=== PATIENT | male | born 1970 | race Caucasian/White ===

== ENCOUNTER 2017-08-20 17:21 | Inpatient (IN) | payer SELFPAY ==
[~2017-08-20] VITALS: Ht 167.6 cm; Wt 75.9 kg
[2017-08-20 19:42] VITALS: BP 118/77
[2017-08-20] MEDS ORDERED: LORazepam 2 MG TABLET PO PRN (20:00)
[2017-08-20] MEDS ORDERED: INFLUENZA VIRUS VACCINE QVS 2017-18 (3YR+)/PF 60 MCG/0.5 ML SYRINGE IM ONE (20:30)
[2017-08-20] MEDS: GABAPENTIN 400 MG CAPSULE PO SCH (21:55)
[2017-08-21] VITALS (8 sets, daily range): BP systolic 112–137; BP diastolic 67–92
[2017-08-21] MEDS: ZIPRASIDONE HCL 40 MG CAPSULE PO SCH (06:33)
[2017-08-21 08:10] LABS: EOSINOPHILS % (AUTO) 2.4 % (1.0-6.0); HEMATOCRIT 43.2 % (41-53); LYMPHOCYTES # (AUTO) 1.5 K/uL (1.0-4.8); MEAN CORPUSCULAR HEMOGLOBIN 29.8 pg (26.0-34.0); MEAN CORPUSCULAR HGB CONC 34.8 G/dL (31.0-37.0); MEAN CORPUSCULAR VOLUME 86 fL (80-100); MONOCYTES # (AUTO) 0.4 K/uL (0.1-1.0); MONOCYTES % (AUTO) 8.3 % (2.0-9.0); NEUTROPHILS # (AUTO) 2.7 K/uL (1.8-7.7); NEUTROPHILS % (AUTO) 56.3 % (40.0-70.0); PLATELET COUNT (AUTO) 178 K/uL (150-450); RED BLOOD CELL COUNT(AUTO) 5.04 MIL/uL (4.50-5.90); RED CELL DISTRIBUTION WIDTH 12.5 % (11.5-14.5)
[2017-08-21 08:57] LABS: ALANINE AMINOTRANSFERASE 26 U/L (12-78); ALBUMIN 2.9 g/dL (3.4-5.0); ALKALINE PHOSPHATASE 111 U/L (46-116); ANION GAP 9 mmol/L (8-16); ASPARTATE AMINOTRANSFERASE 21 U/L (15-37); BILIRUBIN,TOTAL 0.1 mg/dL (0.1-1.0); CALCIUM, TOTAL 8.3 mg/dL (8.8-10.5); CARBON DIOXIDE 27 mmol/L (22-29); CHLORIDE 105 mmol/L (98-107); CREATININE 0.84 mg/dL (0.60-1.30); GLOMERULAR FILTR. RATE CALC > 60 mL/min (>60); GLUCOSE,RANDOM 109 mg/dL (70-110); SODIUM SERUM 141 mmol/L (136-145); TOTAL PROTEIN, SERUM 6.7 g/dL (6.4-8.2); UREA NITROGEN, BLOOD 21 mg/dL (7-18)
[2017-08-21] MEDS: BuPROPion HCL XL 150 MG ER TABLET PO SCH (09:31)
[2017-08-21] MEDS: GABAPENTIN 400 MG CAPSULE PO SCH ×2 (09:31→16:51)
[2017-08-21] MEDS ORDERED: LORazepam 2 MG TABLET PO PRN (14:15)
[2017-08-21] MEDS ORDERED: CYANOCOBALAMIN 1,000 MCG/ML VIAL IM ONE (14:15)
[2017-08-21] MEDS: THIAMINE HCL 100 MG TABLET PO SCH (16:52)
[2017-08-21] MEDS ORDERED: THIAMINE HCL 100 MG/ML 2ML VIAL IM SCH (17:00)
[2017-08-22] VITALS (8 sets, daily range): BP systolic 110–134; BP diastolic 69–83
[2017-08-22] MEDS: ZIPRASIDONE HCL 40 MG CAPSULE PO SCH (06:42)
[2017-08-22] MEDS ORDERED: LORazepam 2 MG TABLET PO PRN (07:00)
[2017-08-22] MEDS: ATENOLOL 25 MG TABLET PO SCH (08:29)
[2017-08-22] MEDS: FOLIC ACID 1 MG TABLET PO SCH (08:30)
[2017-08-22] MEDS: LORazepam 2 MG TABLET PO SCH ×4 (08:30→20:22)
[2017-08-22] MEDS: MULTIVITAMINS WITH MINERALS, THERAPEUTIC TABLET PO SCH (08:30)
[2017-08-22] MEDS: GABAPENTIN 400 MG CAPSULE PO SCH ×2 (08:30→16:22)
[2017-08-22] MEDS: BuPROPion HCL XL 150 MG ER TABLET PO SCH (08:31)
[2017-08-22] MEDS: THIAMINE HCL 100 MG TABLET PO SCH ×2 (08:31→16:22)
[2017-08-22] MEDS: ZOLPIDEM TARTRATE 10 MG TABLET PO PRN (20:22)
[2017-08-23 04:58] VITALS: BP 131/69
[2017-08-23] MEDS: ZIPRASIDONE HCL 40 MG CAPSULE PO SCH (06:23)
[2017-08-23 08:14] VITALS: BP 123/70
[2017-08-23] MEDS: GABAPENTIN 400 MG CAPSULE PO SCH ×2 (09:22→16:52)
[2017-08-23] MEDS: THIAMINE HCL 100 MG TABLET PO SCH ×2 (09:22→16:52)
[2017-08-23] MEDS: BuPROPion HCL XL 150 MG ER TABLET PO SCH (09:22)
[2017-08-23] MEDS: ATENOLOL 25 MG TABLET PO SCH (09:23)
[2017-08-23] MEDS: MULTIVITAMINS WITH MINERALS, THERAPEUTIC TABLET PO SCH (09:23)
[2017-08-23] MEDS: FOLIC ACID 1 MG TABLET PO SCH (09:23)
[2017-08-23] MEDS: LORazepam 2 MG TABLET PO SCH ×4 (09:23→20:31)
[2017-08-23] MEDS: HALOPERIDOL 5 MG TABLET PO PRN (12:10)
[2017-08-23] MEDS ORDERED: LORazepam 2 MG/ML VIAL ONE (13:09)
[2017-08-23] MEDS ORDERED: HALOPERIDOL LACTATE 5 MG/ML VIAL ONE (13:10)
[2017-08-23] MEDS ORDERED: DiphenhydrAMINE HCL 50 MG/ML VIAL ONE (13:10)
[2017-08-23] MEDS ORDERED: HALOPERIDOL LACTATE 5 MG/ML VIAL IM ONE (13:45)
[2017-08-23] MEDS ORDERED: DiphenhydrAMINE HCL 50 MG/ML VIAL IM ONE (13:45)
[2017-08-23] MEDS ORDERED: LORazepam 2 MG/ML VIAL IM ONE (13:45)
[2017-08-23 16:00] VITALS: BP 120/77
[2017-08-23] MEDS: ZOLPIDEM TARTRATE 10 MG TABLET PO PRN (21:08)
[2017-08-24 06:28] VITALS: BP 114/65
[2017-08-24] MEDS: ZIPRASIDONE HCL 40 MG CAPSULE PO SCH (06:34)
[2017-08-24] MEDS ORDERED: LORazepam 1 MG TABLET PO PRN (07:00)
[2017-08-24 08:20] VITALS: BP 128/73
[2017-08-24] MEDS: THIAMINE HCL 100 MG TABLET PO SCH ×2 (09:06→16:17)
[2017-08-24] MEDS: MULTIVITAMINS WITH MINERALS, THERAPEUTIC TABLET PO SCH (09:06)
[2017-08-24] MEDS: LORazepam 1 MG TABLET PO SCH ×4 (09:06→21:35)
[2017-08-24] MEDS: BuPROPion HCL XL 150 MG ER TABLET PO SCH (09:06)
[2017-08-24] MEDS: GABAPENTIN 400 MG CAPSULE PO SCH ×2 (09:06→16:17)
[2017-08-24] MEDS: ATENOLOL 25 MG TABLET PO SCH (09:16)
[2017-08-24] MEDS: FOLIC ACID 1 MG TABLET PO SCH (09:17)
[2017-08-24] MEDS: BISACODYL 5 MG EC TABLET PO PRN ×2 (09:48→14:52)
[2017-08-24 16:00] VITALS: BP 127/74
[2017-08-24] MEDS: HALOPERIDOL 5 MG TABLET PO PRN (16:17)
[2017-08-24] MEDS: ZOLPIDEM TARTRATE 10 MG TABLET PO PRN (21:35)
[2017-08-25 03:57] VITALS: BP 129/72
[2017-08-25] MEDS: ZIPRASIDONE HCL 40 MG CAPSULE PO SCH (06:27)
[2017-08-25 08:19] VITALS: BP_SYST 122; BP_SYST 127; BP_DIAS 70
[2017-08-25] MEDS: GABAPENTIN 400 MG CAPSULE PO SCH ×2 (08:55→16:00)
[2017-08-25] MEDS: MULTIVITAMINS WITH MINERALS, THERAPEUTIC TABLET PO SCH (08:55)
[2017-08-25] MEDS: ATENOLOL 25 MG TABLET PO SCH (08:55)
[2017-08-25] MEDS: BuPROPion HCL XL 150 MG ER TABLET PO SCH (08:55)
[2017-08-25] MEDS: FOLIC ACID 1 MG TABLET PO SCH (08:55)
[2017-08-25] MEDS: THIAMINE HCL 100 MG TABLET PO SCH ×2 (08:55→16:00)
[2017-08-25] MEDS: LORazepam 1 MG TABLET PO PRN ×3 (08:56→17:48)
[2017-08-25] MEDS: BISACODYL 5 MG EC TABLET PO PRN ×2 (09:20→16:00)
[2017-08-25] MEDS: HALOPERIDOL 5 MG TABLET PO PRN ×3 (10:03→20:36)
[2017-08-25] MEDS: NICOTINE 21 MG/24 HOUR PATCH TD SCH (10:04)
[2017-08-25 16:00] VITALS: BP 122/67
[2017-08-25] MEDS: ZOLPIDEM TARTRATE 10 MG TABLET PO PRN (20:36)
[2017-08-26 01:10] VITALS: BP 116/69
[2017-08-26] MEDS: HALOPERIDOL 5 MG TABLET PO PRN ×3 (01:10→16:24)
[2017-08-26] MEDS: LORazepam 1 MG TABLET PO PRN (01:10)
[2017-08-26] MEDS: ZIPRASIDONE HCL 40 MG CAPSULE PO SCH (06:18)
[2017-08-26 08:12] VITALS: BP 119/65
[2017-08-26] MEDS: MULTIVITAMINS WITH MINERALS, THERAPEUTIC TABLET PO SCH (08:45)
[2017-08-26] MEDS: BuPROPion HCL XL 150 MG ER TABLET PO SCH (08:45)
[2017-08-26] MEDS: THIAMINE HCL 100 MG TABLET PO SCH ×2 (08:45→16:23)
[2017-08-26] MEDS: NICOTINE 21 MG/24 HOUR PATCH TD SCH (08:45)
[2017-08-26] MEDS: ATENOLOL 25 MG TABLET PO SCH (08:45)
[2017-08-26] MEDS: GABAPENTIN 400 MG CAPSULE PO SCH ×2 (08:45→16:24)
[2017-08-26] MEDS: FOLIC ACID 1 MG TABLET PO SCH (08:45)
[2017-08-26] MEDS: BISACODYL 5 MG EC TABLET PO PRN ×2 (10:11→16:24)
[2017-08-26 13:30] VITALS: BP 132/89
[2017-08-26] MEDS ORDERED: ATENOLOL 25 MG TABLET PO ONE (13:30)
[2017-08-26 16:09] VITALS: BP 135/86
[2017-08-26] MEDS ORDERED: GABA-533 PO (20:09)
[2017-08-26] MEDS ORDERED: ZIPR40CA2 PO (20:13)
[2017-08-26] MEDS ORDERED: BUPR-93 PO (20:14)
[2017-08-26] MEDS ORDERED: ATEN50TA PO (20:15)
[2017-08-26] MEDS: ZOLPIDEM TARTRATE 10 MG TABLET PO PRN (20:51)
[2017-08-27] MEDS: HALOPERIDOL 5 MG TABLET PO PRN (02:02)
[2017-08-27] MEDS: BISACODYL 5 MG EC TABLET PO PRN (02:02)
[2017-08-27 02:23] VITALS: BP 124/86
[2017-08-27] MEDS: ZIPRASIDONE HCL 40 MG CAPSULE PO SCH (06:10)
[2017-08-27] MEDS ORDERED: ATENOLOL 50 MG TABLET PO SCH (09:00)
== END 2017-08-27 07:30 | disposition home or self-care (01) | DRG 885 ==
LOC: B3A 20:09
DX: F25.1 Schizoaffective disorder, depressive type (principal); R45.851 Suicidal ideations; Z59.0 Homelessness; I10 Essential (primary) hypertension; F10.20 Alcohol dependence, uncomplicated; F19.10 Other psychoactive substance abuse, uncomplicated
CPT/HCPCS: 86592; 87081; 90471; J1200; J1630; J2060; J3420